=== PATIENT | male | born 1950 | race Caucasian/White ===

== ENCOUNTER → 2019-01-06 | Outpatient (CLI) | payer MEDICARE, BC ==
[2014-05-26 14:30] VITALS: BP 94/53
[~2019-01-06] MED LIST: CAVERJECT SQ; FLONASE0.05 MG/AC NS; LANTUS100 U/ML SQ; LISINOPRIL20 MG PO; METFORMIN500 MG PO; NOVOLIN R100 U/ML; PRILOSEC 20MG20 MG PO; ZOCOR 80MG80 MG PO
[2019-01-06 09:45] LABS: ALBUMIN 4.1 g/dL (3.4-4.8); CALCIUM 9.9 mg/dL (8.8-10.0); POTASSIUM 4.3 mmol/L (3.5-5.1); TOTAL BILIRUBIN 0.4 mg/dL (0.2-1.2); TOTAL PROTEIN 6.5 g/dL (6.2-8.1)
== END ==
LOC: LAB 07:34
PROVIDERS: Registered Nurse
DX: E11.29 Type 2 diabetes mellitus with other diabetic kidney complication (principal); E11.42 Type 2 diabetes mellitus with diabetic polyneuropathy; Z79.4 Long term (current) use of insulin; R80.9 Proteinuria, unspecified; E78.2 Mixed hyperlipidemia; I10 Essential (primary) hypertension

== ENCOUNTER → 2020-04-21 | Outpatient (CLI) | payer MEDICARE, BC ==
[2014-05-26 14:30] VITALS: BP 94/53
[2020-04-21 08:43] LABS: POTASSIUM 4.3 mmol/L (3.5-5.1)
[2020-04-21 08:45] LABS: CALCIUM 9.3 mg/dL (8.3-10.5)
[2020-04-21 08:46] LABS: TOTAL PROTEIN 6.6 g/dL (6.2-8.1)
[2020-04-21 08:48] LABS: TOTAL BILIRUBIN 0.5 mg/dL (0.2-1.2)
== END ==
LOC: LAB 08:14
PROVIDERS: Family Medicine
DX: E11.9 Type 2 diabetes mellitus without complications (principal); Z12.5 Encounter for screening for malignant neoplasm of prostate; E78.5 Hyperlipidemia, unspecified

== ENCOUNTER → 2021-07-27 | Outpatient (CLI) | payer MEDICARE, BC | LOC: LAB 10:43 | DX: R97.20 Elevated prostate specific antigen [PSA] (principal) ==

== ENCOUNTER → 2024-09-10 | Outpatient (CLI) | payer MEDICARE, BC ==
[~2024-09-10] MED LIST changes: +MECLIZINE PO
== END ==
LOC: RAD 09:17
DX: M16.0 Bilateral primary osteoarthritis of hip (principal); R05.3 Chronic cough